=== PATIENT | male | born 1975 | race American Indian/Alaskan Native ===

== ENCOUNTER 2019-05-11 18:15 | Emergency (ER) | payer MEDICAID ==
[2019-05-11] MEDS ORDERED: Cefuroxime 250 MG Tab PO ONE (18:16)
[2019-05-11 18:20] VITALS: BP 113/79; PULSE 111
--- NOTE | 2019-05-11 18:50 | EDM.PDOC ---
ED HPI GENERAL MEDICAL PROBLEM - General Chief Complaint: Respiratory Problem Stated Complaint: malaise,cough Time Seen by Provider: 05/11/19 18:35 Source of Information: Reports: Patient History Limitations: Reports: No Limitations - History of Present Illness INITIAL COMMENTS - FREE TEXT/NARRATIVE: Has had body aches, cough and nasal drainage since Wednesday night. cough is harsh. Has had low grade temps with chills at times. Exposure to influenza from grandson. 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 [No Known Home Meds] 05/07/15 [History] Past Medical History - Past Health History Medical/Surgical History: Denies Medical/Surgical History Musculoskeletal History: Reports: Arthritis - Past Surgical History Musculoskeletal Surgical History: Reports: Arthroscopic Knee, Other (See Below) Other Musculoskeletal Surgeries/Procedures:: has history of scope surgery to left knee; gets injections in both knees Social & Family History - Tobacco Use Smoking Status *Q: Never Smoker ED ROS GENERAL - Review of Systems Review Of Systems: See Below Constitutional: Reports: Fever, Chills HEENT: Reports: Throat Pain Respiratory: Reports: Cough, Sputum (clear) Cardiovascular: Reports: No Symptoms GI/Abdominal: Reports: No Symptoms Skin: Reports: No Symptoms ED EXAM, GENERAL - Physical Exam Exam: See Below Exam Limited By: No Limitations General Appearance: Alert, WD/WN, Mild Distress Ears: Normal External Exam, Normal Canal, Normal TMs Nose: Normal Inspection Throat/Mouth: Normal Inspection, Normal Oropharynx, No Airway Compromise Head: Atraumatic Neck: Normal Inspection, Supple, Non-Tender Respiratory/Chest: No Respiratory Distress, Lungs Clear, Normal Breath Sounds Cardiovascular: Regular Rate, Rhythm GI/Abdominal: Normal Bowel Sounds, Soft, Non-Tender Neurological: Alert, Oriented Skin Exam: Warm, Dry, Intact Course - Vital Signs Last Recorded V/S: Last Vital Signs Temp 97.8 F 05/11/19 18:17 Pulse 111 H 05/11/19 18:17 Resp 16 05/11/19 18:17 BP 113/79 05/11/19 18:17 Pulse Ox 96 05/11/19 18:17 - Orders/Labs/Meds Orders: Active Orders 24 hr Category Date Time Status CBC WITH AUTO DIFF [HEME] Stat Lab 05/11/19 18:40 Results INFLUENZA A+B AG SCREEN [RM] Stat Lab 05/11/19 18:27 Ordered MANUAL DIFFERENTIAL QA/NC [HEME] Stat Lab 05/11/19 18:40 Results Labs: Laboratory Tests 05/11/19 Range/Units 18:40 WBC 15.3 H (5.0-10.0) 10^3/uL RBC 5.60 (4.50-6.00) 10^6/uL Hgb 17.0 (14.0-18.0) g/dL Hct 49.4 (40.0-54.0) % MCV 88.2 (82.0-94.0) fL MCH 30.4 (27.0-32.0) pg MCHC 34.4 (33.0-38.0) g/dL RDW Coeff of Andrew 14.1 (11.0-15.0) % Plt Count 260 (150-400) 10^3/uL Add Manual Diff Yes Departure - Departure Time of Disposition: 19:10 Disposition: Home, Self-Care 01 Condition: Good Clinical Impression: Sinusitis Qualifiers: Sinusitis location: maxillary Chronicity: acute Recurrence: non-recurrent Qualified Code(s): J01.00 - Acute maxillary sinusitis, unspecified - Discharge Information *PRESCRIPTION DRUG MONITORING PROGRAM REVIEWED*: Not Applicable *COPY OF PRESCRIPTION DRUG MONITORING REPORT IN PATIENT PRISCILA: Not Applicable Instructions: Sinusitis, Adult, [id number] Forms: ED Department Discharge Additional Instructions: push fluids as much as possible tylenol or advil as needed for discomfort or fever Rest recheck in clinic if any changes in symptoms Ceftin 500 mg twice a day for 10 days Sepsis Event Note - Evaluation Sepsis Screening Result: No Definite Risk - Focused Exam Vital Signs: Vital Signs Temp Pulse Resp BP Pulse Ox 05/11/19 18:17 97.8 F 111 H 16 113/79 96 Date Exam was Performed: 05/11/19 Time Exam was Performed: 19:09 - Problem List & Annotations (1) Sinusitis SNOMED Code(s): 55051633 Code(s): J32.9 - CHRONIC SINUSITIS, UNSPECIFIED Status: Acute Current Visit: Yes Qualifiers: Sinusitis location: maxillary Chronicity: acute Recurrence: non- recurrent Qualified Code(s): J01.00 - Acute maxillary sinusitis, unspecified - Problem List Review Problem List Initiated/Reviewed/Updated: Yes - My Orders Last 24 Hours: My Active Orders 05/11/19 18:27 INFLUENZA A+B AG SCREEN [RM] Stat 05/11/19 18:40 CBC WITH AUTO DIFF [HEME] Stat MANUAL DIFFERENTIAL QA/NC [HEME] Stat - Assessment/Plan Last 24 Hours: My Active Orders 05/11/19 18:27 INFLUENZA A+B AG SCREEN [RM] Stat 05/11/19 18:40 CBC WITH AUTO DIFF [HEME] Stat MANUAL DIFFERENTIAL QA/NC [HEME] Stat
[2019-05-11] MEDS: Take Home: Cefuroxime 250 MG Tab, 2 Tab Pack PO ONE (19:16)
== END 2019-05-11 19:20 | disposition home or self-care (01) ==
LOC: CC.ED 18:15
DX: J01.00 Acute maxillary sinusitis, unspecified (principal); Z88.0 Allergy status to penicillin; Z88.1 Allergy status to other antibiotic agents
CPT/HCPCS: 36415; 85025; 87804; 99283; A9270-GY

== ENCOUNTER 2020-11-25 18:57 | Inpatient (IN) | payer MEDICAID ==
[2020-11-25] MEDS ORDERED: Acetaminophen 325 MG Tab PO ONE ×2 (19:00→19:08)
--- NOTE | 2020-11-25 19:43 | EDM.PDOC ---
ED HPI GENERAL MEDICAL PROBLEM - General Chief Complaint: General Stated Complaint: COVID+ "Not Feeling Better" Time Seen by Provider: 11/25/20 19:20 Source of Information: Reports: Patient History Limitations: Reports: No Limitations - History of Present Illness INITIAL COMMENTS - FREE TEXT/NARRATIVE: Ulices is a 45 year old male who presents to ER with complaints of cough, body aches and fever now for over a week. Several members in the house have been ill and tested positive for covid. He admits that his shortness of breath has gotten worse over the last 3 days, could hardly even get out to his car to come here. Has been sleeping much of the weekend at home. Still has intermittent high fevers, 103 on arrival to the ER here tonight. Admits to sore throat initially. Has lost his taste and smell. Cough is dry and tight, nonproductive. Nauseated at times. Does have more discomfort with his umbilical hernia now due to the frequent cough. Intermittent diarrhea. Did not get the vaccine. has been taking ibuprofen and tylenol and it only seems to help for a short period of time. Nurse reports that oxygen sat was 87% on arrival. Onset: Gradual Duration: Day(s):, Getting Worse Location: Reports: Chest, Generalized Quality: Reports: Ache Severity: Moderate Improves with: Reports: Rest Worsens with: Reports: Movement Associated Symptoms: Reports: Cough, Fever/Chills, Headaches, Loss of Appetite, Malaise, Nausea/Vomiting, Shortness of Breath, Weakness. 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 [No Known Home Meds] 05/07/15 [History] Past Medical History - Past Health History Medical/Surgical History: Denies Medical/Surgical History Musculoskeletal History: Reports: Arthritis - Past Surgical History Musculoskeletal Surgical History: Reports: Arthroscopic Knee, Other (See Below) Other Musculoskeletal Surgeries/Procedures:: has history of scope surgery to left knee; gets injections in both knees Social & Family History - Family History Family Medical History: No Pertinent Family History - Tobacco Use Tobacco Use Status *Q: Never Tobacco User Second Hand Smoke Exposure: No - Caffeine Use Caffeine Use: Reports: None - Recreational Drug Use Recreational Drug Use: No ED ROS GENERAL - Review of Systems Review Of Systems: See Below Constitutional: Reports: Fever, Chills, Malaise, Weakness, Fatigue HEENT: Reports: Rhinitis. Denies: Ear Pain, Sinus Problem, Throat Pain, Vertigo Respiratory: Reports: Shortness of Breath, Cough. Denies: Sputum Cardiovascular: Denies: Chest Pain, Edema, Lightheadedness Endocrine: Reports: Fatigue GI/Abdominal: Reports: Diarrhea, Nausea. Denies: Abdominal Pain, Constipation, Vomiting : Reports: No Symptoms Musculoskeletal: Reports: Muscle Pain, Muscle Stiffness Skin: Reports: No Symptoms Neurological: Reports: Headache, Weakness ED EXAM, GENERAL - Physical Exam Exam: See Below Exam Limited By: No Limitations General Appearance: Alert, WD/WN, Mild Distress Ears: Normal External Exam, Normal TMs Nose: Normal Inspection, Normal Mucosa, Clear Rhinorrhea Throat/Mouth: Normal Inspection, Normal Oropharynx Head: Normocephalic Neck: Normal Inspection, Supple, Non-Tender Respiratory/Chest: Decreased Breath Sounds Cardiovascular: Normal Peripheral Pulses, Regular Rate, Rhythm, No Edema GI/Abdominal: Normal Bowel Sounds, Soft, Tender (left upper and lower quadrant, umbilical area), Hernia Extremities: Normal Inspection, No Pedal Edema Neurological: Alert, Oriented Skin Exam: Warm, Dry Course - Vital Signs Last Recorded V/S: Last Vital Signs Temp 103.4 F H 11/25/20 18:57 Pulse 84 11/25/20 18:57 Resp 24 H 11/25/20 18:57 BP 154/85 H 11/25/20 18:57 Pulse Ox 91 L 11/25/20 18:57 - Orders/Labs/Meds Orders: Active Orders 24 hr Category Date Time Status Patient Status Manage Transfer [TRANSFER] Routine ADT 11/25/20 19:55 Active Chest 1V Frontal [CR] Stat Exams 11/25/20 19:00 Taken CULTURE BLOOD [BC] Stat Lab 11/25/20 19:20 Received CULTURE BLOOD [BC] Stat Lab 11/25/20 19:25 Received Blood Culture x2 Reflex Set [OM.PC] Stat Oth 11/25/20 19:05 Ordered Resuscitation Status Routine Resus Stat 11/25/20 19:57 Ordered Labs: Laboratory Tests 09/09/0911/25/20 11/25/20 Range/Units 19:07 19:20 19:20 WBC 8.2 (4.0-11.0) 10^3/uL RBC 5.13 (4.50-6.00) x10^6/uL Hgb 15.8 (14.0-18.0) g/dL Hct 45.0 (42.0-52.0) % MCV 87.7 (83.0-97.0) fL MCH 30.8 (27.0-32.0) pg MCHC 35.1 (32.0-36.0) g/dL RDW Coeff of Andrew 13.2 (11.0-15.0) % Plt Count 220 (150-400) 10^3/uL Immature Gran % (Auto) 1.5 (0.0-4.9) % Neut % (Auto) 71.9 H (41-71) % Lymph % (Auto) 16.1 L (24-44) % [place] % (Auto) 9.7 (0-10) % Eos % (Auto) 0.4 (0-6) % Baso % (Auto) 0.4 (0-1) % Neut # (Auto) 5.88 (1.80-8.00) x10^3/uL Lymph # (Auto) 1.31 (0.60-5.00) 10^3/uL [place] # (Auto) 0.79 (0.00-1.50) 10^3/uL Eos # (Auto) 0.03 (0.00-1.50) 10^3/uL Baso # (Auto) 0.03 (0.00-0.50) 10^3/uL Immature Gran # (Auto) 0.12 (0.00-0.49) 10^3/uL D-Dimer, Quantitative (0.00-0.50) Sodium 140 (136-145) mEq/L Potassium 3.6 (3.5-5.0) mEq/L Chloride 102 (98-106) mEq/L Carbon Dioxide 26 (21-32) mmol/L BUN 14 (7-18) mg/dL Creatinine 0.9 (0.7-1.3) mg/dL Est Cr Clr Drug Dosing 94.87 mL/min Estimated GFR (MDRD) > 60 (>=60) mL/min Glucose 98 (75-99) mg/dL Lactic Acid (0.4-2.0) mmol/L Calcium 8.2 L (8.4-10.1) mg/dL Magnesium 1.9 (1.8-2.4) mg/dL Total Bilirubin 0.6 (0.0-1.0) mg/dL AST 34 (15-37) U/L ALT 41 (12-78) U/L Alkaline Phosphatase 83 (46-116) U/L Troponin I High Sens 5.3 (<=76) pg/mL C-Reactive Protein 8.6 H (0.2-0.8) mg/dL NT-Pro-B Natriuret Pep 137 (0-1000) pg/mL Total Protein 7.4 (6.4-8.2) g/dL Albumin 3.0 L (3.4-5.0) g/dL SARS CoV-2 RNA Rapid SHAMA Positive H (NEGATIVE) 11/25/20 11/25/20 Range/Units 19:25 19:25 WBC (4.0-11.0) 10^3/uL RBC (4.50-6.00) x10^6/uL Hgb (14.0-18.0) g/dL Hct (42.0-52.0) % MCV (83.0-97.0) fL MCH (27.0-32.0) pg MCHC (32.0-36.0) g/dL RDW Coeff of Andrew (11.0-15.0) % Plt Count (150-400) 10^3/uL Immature Gran % (Auto) (0.0-4.9) % Neut % (Auto) (41-71) % Lymph % (Auto) (24-44) % [place] % (Auto) (0-10) % Eos % (Auto) (0-6) % Baso % (Auto) (0-1) % Neut # (Auto) (1.80-8.00) x10^3/uL Lymph # (Auto) (0.60-5.00) 10^3/uL [place] # (Auto) (0.00-1.50) 10^3/uL Eos # (Auto) (0.00-1.50) 10^3/uL Baso # (Auto) (0.00-0.50) 10^3/uL Immature Gran # (Auto) (0.00-0.49) 10^3/uL D-Dimer, Quantitative 0.87 H (0.00-0.50) Sodium (136-145) mEq/L Potassium (3.5-5.0) mEq/L Chloride (98-106) mEq/L Carbon Dioxide (21-32) mmol/L BUN (7-18) mg/dL Creatinine (0.7-1.3) mg/dL Est Cr Clr Drug Dosing mL/min Estimated GFR (MDRD) (>=60) mL/min Glucose (75-99) mg/dL Lactic Acid 0.8 (0.4-2.0) mmol/L Calcium (8.4-10.1) mg/dL Magnesium (1.8-2.4) mg/dL Total Bilirubin (0.0-1.0) mg/dL AST (15-37) U/L ALT (12-78) U/L Alkaline Phosphatase (46-116) U/L Troponin I High Sens (<=76) pg/mL C-Reactive Protein (0.2-0.8) mg/dL NT-Pro-B Natriuret Pep (0-1000) pg/mL Total Protein (6.4-8.2) g/dL Albumin (3.4-5.0) g/dL SARS CoV-2 RNA Rapid SHAMA (NEGATIVE) Meds: Medications Discontinued Medications Generic Name Dose Route Start Last Admin Trade Name Vernon PRN Reason Stop Dose Admin Acetaminophen 1,000 mg 11/25/20 19:00 11/25/20 19:08 Acetaminophen 325 Mg Tab PO 11/25/20 19:01 Not Given NOW ONE Acetaminophen 650 mg 11/25/20 19:08 11/25/20 19:10 Acetaminophen 325 Mg Tab PO 11/25/20 19:09 650 mg NOW ONE Administration - Re-Assessments/Exams Free Text/Narrative Re-Assessment/Exam: 11/25/20 19:48 Covid positive. Oxygen sat 95% on 2 liters of oxygen 11/25/20 20:21 Labs all essentially unremarkable. CRP 8.6, d-dimer mildly elevated at 0.89. Admit to inpatient. Start on IV fluids tonight until oral intake improved. Will start IV Remdesivir. Oxygen. Departure - Departure Time of Disposition: 20:24 Disposition: Admitted As Inpatient 64 Condition: Fair Clinical Impression: COVID-19, Hypoxia - Discharge Information *PRESCRIPTION DRUG MONITORING PROGRAM REVIEWED*: No *COPY OF PRESCRIPTION DRUG MONITORING REPORT IN PATIENT PRISCILA: No Sepsis Event Note (ED) - Evaluation Sepsis Screening Result: No Definite Risk - Focused Exam Vital Signs: Vital Signs Temp Pulse Resp BP Pulse Ox 11/25/20 18:57 103.4 F H 84 24 H 154/85 H 91 L - Problem List & Annotations (1) COVID-19 SNOMED Code(s): 341475059 Code(s): U07.1 - COVID-19 Status: Acute Priority: High Current Visit: Yes (2) Hypoxia SNOMED Code(s): 089657585 Code(s): R09.02 - HYPOXEMIA Status: Acute Priority: High Current Visit: Yes - Problem List Review Problem List Initiated/Reviewed/Updated: Yes - My Orders Last 24 Hours: My Active Orders 11/25/20 19:00 Chest 1V Frontal [CR] Stat 11/25/20 19:05 Blood Culture x2 Reflex Set [OM.PC] Stat 11/25/20 19:20 CULTURE BLOOD [BC] Stat 11/25/20 19:25 CULTURE BLOOD [BC] Stat 11/25/20 19:55 Patient Status Manage Transfer [TRANSFER] Routine 11/25/20 19:57 Resuscitation Status Routine - Assessment/Plan Admission H&P: Please use this note as an admission H&P Last 24 Hours: My Active Orders 11/25/20 19:00 Chest 1V Frontal [CR] Stat 11/25/20 19:05 Blood Culture x2 Reflex Set [OM.PC] Stat 11/25/20 19:20 CULTURE BLOOD [BC] Stat 11/25/20 19:25 CULTURE BLOOD [BC] Stat 11/25/20 19:55 Patient Status Manage Transfer [TRANSFER] Routine 11/25/20 19:57 Resuscitation Status Routine Assessment:: covid 19 Hypoxia Plan: Admit inpatient. Start IV fluids tonight. Remdesivir. Oxygen to keep sats greater than 90%.
[2020-11-25 19:49] LABS: CHLORIDE,CL 102 mEq/L (98-106); SODIUM,NA 140 mEq/L (136-145)
[2020-11-25] MEDS ORDERED: Polyethylene Glycol 3350 Powder 17 GM Packet PO PRN (20:49)
[2020-11-25] MEDS ORDERED: Ibuprofen 200 MG Tab PO PRN (20:49)
[2020-11-25] MEDS ORDERED: Temazepam 15 MG Cap PO PRN (20:49)
[2020-11-25] MEDS ORDERED: Ondansetron 4 MG/2 ML SDV IV PRN (20:49)
[2020-11-25] MEDS ORDERED: Ondansetron 4 MG Tab.DIS PO PRN (20:49)
[2020-11-25] MEDS ORDERED: Sodium Chloride 0.9% 10 ML Syringe FLUSH PRN (20:49)
[2020-11-25] MEDS ORDERED: REMDESIVIR 200 MG in Sodium Chloride 0.9% 250 ML IV ONE (20:49)
[2020-11-25] MEDS ORDERED: Sodium Chloride 0.9% 1,000 ML IV SCH (20:49)
[2020-11-26] MEDS: Acetaminophen 325 MG Tab PO PRN (03:23)
[2020-11-26 07:34] LABS: CHLORIDE,CL 103 mEq/L (98-106); SODIUM,NA 139 mEq/L (136-145)
--- NOTE | 2020-11-26 11:37 | PN ---
DATE: 11/26/2020 S: The patient is a 45-year-old male, known to me whose family apparently has all had COVID. He started getting more short of breath and was found to be hypoxic. Ivett Chowdhury admitted him from the ER and did give him remdesivir. He has been essentially afebrile since admission with a temperature at the time of admission of 103.4. He has been afebrile since, started out requiring 2 L of oxygen to keep him in the mid 90s where he is down to 1 L and he is saturating in the upper 90s at this time. He does feel better and less short of breath. His lab work is reviewed from his admission and is essentially stable. D-dimer was only 0.87. O: GENERAL: The patient is pleasant and cooperative. He appears in no distress. HEENT: Grossly benign. NECK: Neck veins are flat. LUNGS: Lung sounds are a little rhonchus in the upper airways, but otherwise clear. CARDIAC: Tones are regular. ABDOMEN: Soft. EXTREMITIES: He has no peripheral edema. ASSESSMENT: CORONAVIRUS DISEASE 2019 WITH HYPOXIA. P: We will continue to wean his O2. No other changes at this time. CLARI/MARCELINO /[id number]
[2020-11-26] MEDS: Enoxaparin 40 MG/0.4 ML Syringe SUBCUT SCH (12:15)
[2020-11-26] MEDS ORDERED: Rocuronium 50 MG/5 ML Vial ONE ×2 (13:54→13:56)
[2020-11-26] MEDS ORDERED: Succinylcholine 200 MG/10 ML MDV ONE ×2 (13:54→13:56)
[2020-11-26] MEDS: REMDESIVIR 100 MG in Sodium Chloride 0.9% 100 ML IV SCH (20:15)
[2020-11-27] MEDS: Acetaminophen 325 MG Tab PO PRN ×2 (00:55→08:16)
[2020-11-27 07:31] LABS: CHLORIDE,CL 103 mEq/L (98-106); SODIUM,NA 140 mEq/L (136-145)
[2020-11-27] MEDS: Enoxaparin 40 MG/0.4 ML Syringe SUBCUT SCH (12:27)
[2020-11-27] MEDS: REMDESIVIR 100 MG in Sodium Chloride 0.9% 100 ML IV SCH (12:28)
[2020-11-27 12:52] VITALS: BP 136/69; PULSE 69
--- NOTE | 2020-11-27 18:29 | PCM.DCSUM1 ---
Discharge Summary - Hospital Course Free Text/Narrative:: Ulices is a 45 year old male who presented to ER with complaints of cough, body aches and fever for over a week. Shortness of breath had worsened, positive for covid in ER. Had been sleeping much of the weekend at home. Still has intermittent high fevers, 103 on arrival. Admits to sore throat initially. Has lost his taste and smell. Cough is dry and tight, nonproductive. Nauseated at times. Does have more discomfort with his umbilical hernia now due to the frequent cough. Intermittent diarrhea. Did not get the vaccine. has been taking ibuprofen and tylenol and it only seems to help for a short period of time. Nurse reports that oxygen sat was 87% on arrival to ER. Did improve to greater than 90% on 2 liters. Labs were essentially unremarkable. Chest xray shows infiltrated concerning with covid. Admitted with oxygen, started on Rem desivir IV. Diagnosis: Stroke: No Modified [place] Scale: No Symptoms at All Modified [place] Scale Score: 0 - Discharge Data Discharge Date: 11/27/20 Discharge Disposition: Home, Self-Care 01 Condition: Good - Referral to Home Health Primary Care Physician: Robert Montesinos MD - Discharge Diagnosis/Problem(s) (1) COVID-19 SNOMED Code(s): 934972390 ICD Code: U07.1 - COVID-19 Status: Acute Priority: High (2) Hypoxia SNOMED Code(s): 990398972 ICD Code: R09.02 - HYPOXEMIA Status: Acute Priority: High - Patient Summary/Data Complications: none Hospital Course: Patient states feeling 100% better than on arrival here on Wednesday. Oxygen sats now greater than 90% off oxygen. Temp is low grade, much improved. Is active in room, ambulating in the hallways. Tolerating well. Appetite is good. Lung sounds are clear. Did receive 3 doses of Remdesivir. Does feel ready to be discharged home. Will follow up with Dr. Montesinos in 10 days. - Patient Instructions Diet: Usual Diet as Tolerated Activity: As Tolerated - Discharge Plan *PRESCRIPTION DRUG MONITORING PROGRAM REVIEWED*: No *COPY OF PRESCRIPTION DRUG MONITORING REPORT IN PATIENT PRISCILA: No Home Medications: Home Meds . [No Known Home Meds] 05/07/15 [History] Patient Handouts: COVID-19 Forms: ED Department Discharge Referrals: Robert Montesinos MD [Primary Care Provider] - (Follow up with Dr. Montesinos in 10 days) - Discharge Summary/Plan Comment DC Time >30 min.: No Total # of Minutes for Discharge Time: 20 - General Info Date of Service: 11/27/20 Admission Dx/Problem (Free Text: COVID 19 Functional Status: Reports: Pain Controlled, Ambulating - Review of Systems General: Reports: Weakness, Fatigue, Malaise HEENT: Reports: No Symptoms Pulmonary: Reports: Shortness of Breath. Denies: Cough Cardiovascular: Denies: Chest Pain, Edema, Lightheadedness Gastrointestinal: Denies: Abdominal Pain, Nausea, Vomiting Genitourinary: Reports: No Symptoms Musculoskeletal: Reports: No Symptoms Skin: Reports: No Symptoms Neurological: Reports: Weakness - Patient Data Vitals - Most Recent: Last Vital Signs Temp 97.6 F 11/27/20 12:00 Pulse 69 11/27/20 12:00 Resp 20 11/27/20 12:00 BP 136/69 11/27/20 12:00 Pulse Ox 95 11/27/20 12:00 Weight - Most Recent: 226 lb Lab Results - Last 24 hrs: Laboratory Results - last 24 hr 11/27/20 11/27/20 Range/Units 07:00 07:00 WBC 8.0 (4.0-11.0) 10^3/uL RBC 4.80 (4.50-6.00) x10^6/uL Hgb 14.8 (14.0-18.0) g/dL Hct 42.2 (42.0-52.0) % MCV 87.9 (83.0-97.0) fL MCH 30.8 (27.0-32.0) pg MCHC 35.1 (32.0-36.0) g/dL RDW Coeff of Andrew 13.0 (11.0-15.0) % Plt Count 266 (150-400) 10^3/uL Immature Gran % (Auto) 2.4 (0.0-4.9) % Neut % (Auto) 59.8 (41-71) % Lymph % (Auto) 20.3 L (24-44) % [place] % (Auto) 15.2 H (0-10) % Eos % (Auto) 2.1 (0-6) % Baso % (Auto) 0.2 (0-1) % Neut # (Auto) 4.81 (1.80-8.00) x10^3/uL Lymph # (Auto) 1.63 (0.60-5.00) 10^3/uL [place] # (Auto) 1.22 (0.00-1.50) 10^3/uL Eos # (Auto) 0.17 (0.00-1.50) 10^3/uL Baso # (Auto) 0.02 (0.00-0.50) 10^3/uL Immature Gran # (Auto) 0.19 (0.00-0.49) 10^3/uL Sodium 140 (136-145) mEq/L Potassium 3.5 (3.5-5.0) mEq/L Chloride 103 (98-106) mEq/L Carbon Dioxide 29 (21-32) mmol/L BUN 13 (7-18) mg/dL Creatinine 1.0 (0.7-1.3) mg/dL Est Cr Clr Drug Dosing 85.38 mL/min Estimated GFR (MDRD) > 60 (>=60) mL/min Glucose 101 H D (75-99) mg/dL Calcium 8.0 L (8.4-10.1) mg/dL Total Bilirubin 0.5 (0.0-1.0) mg/dL Direct Bilirubin 0.2 (0.0-0.3) mg/dL AST 20 (15-37) U/L ALT 31 (12-78) U/L Alkaline Phosphatase 73 (46-116) U/L C-Reactive Protein 8.6 H (0.2-0.8) mg/dL Total Protein 6.9 (6.4-8.2) g/dL Albumin 2.7 L (3.4-5.0) g/dL ILEANA Results - Last 24 hrs: Microbiology 11/25/20 19:25 Aerobic Blood Culture - Preliminary Blood - Venous - Lab Draw NO GROWTH AFTER 1 DAY Anaerobic Blood Culture - Preliminary NO GROWTH AFTER 1 DAY 11/25/20 19:20 Aerobic Blood Culture - Preliminary Blood - Venous NO GROWTH AFTER 1 DAY Anaerobic Blood Culture - Preliminary NO GROWTH AFTER 1 DAY Med Orders - Current: Current Medications Discontinued Medications Acetaminophen (Acetaminophen 325 Mg Tab) 1,000 mg PO NOW ONE Stop: 11/25/20 19:01 Last Admin: 11/25/20 19:08 Dose: Not Given Documented by: Acetaminophen (Acetaminophen 325 Mg Tab) 650 mg PO NOW ONE Stop: 11/25/20 19:09 Last Admin: 11/25/20 19:10 Dose: 650 mg Documented by: Acetaminophen (Acetaminophen 325 Mg Tab) 650 mg PO Q4H PRN PRN Reason: Pain (Mild 1-3)/fever Last Admin: 11/27/20 08:16 Dose: 650 mg Documented by: Enoxaparin Sodium (Enoxaparin 40 Mg/0.4 Ml Syringe) 40 mg SUBCUT Q24H [facility] [place] Last Admin: 11/27/20 12:27 Dose: 40 mg Documented by: Sodium Chloride (Normal Saline) 1,000 mls @ 75 mls/hr IV ASDIRECTED [facility] [place] Last Admin: 11/26/20 03:23 Dose: 75 mls/hr Documented by: Remdesivir 200 mg/ Sodium (Chloride) 250 mls @ 250 mls/hr IV ONETIME ONE Stop: 11/25/20 20:50 Last Admin: 11/25/20 21:32 Dose: 250 mls/hr Documented by: Remdesivir 100 mg/ Sodium (Chloride) 100 mls @ 100 mls/hr IV Q24H [facility] [place] Stop: 11/29/20 20:59 Last Admin: 11/27/20 12:28 Dose: 100 mls/hr Documented by: Ibuprofen (Ibuprofen 200 Mg Tab) 400 mg PO Q6H PRN PRN Reason: Pain (mild 1-3) Ondansetron HCl (Ondansetron 4 Mg Tab.Dis) 4 mg PO Q4H PRN PRN Reason: nausea, able to take PO Ondansetron HCl (Ondansetron 4 Mg/2 Ml Sdv) 4 mg IV Q4H PRN PRN Reason: Nausea/Vomiting Polyethylene Glycol (Polyethylene Glycol 3350 Powder 17 Gm Packet) 17 gm PO DAILY PRN PRN Reason: Constipation Rocuronium Magnolia (Rocuronium 50 Mg/5 Ml Vial) Confirm Administered Dose 50 mg .ROUTE .STK-MED ONE Stop: 11/26/20 13:55 Last Admin: 11/26/20 15:27 Dose: Not Given Documented by: Rocuronium Magnolia (Rocuronium 50 Mg/5 Ml Vial) Confirm Administered Dose 50 mg .ROUTE .STK-MED ONE Stop: 11/26/20 13:57 Last Admin: 11/26/20 15:27 Dose: Not Given Documented by: Sodium Chloride (Sodium Chloride 0.9% 10 Ml Syringe) 10 ml FLUSH ASDIRECTED PRN PRN Reason: Keep Vein Open Succinylcholine Chloride (Succinylcholine 200 Mg/10 Ml Mdv) Confirm Administered Dose 200 mg .ROUTE .STTargeGen-MED ONE Stop: 11/26/20 13:55 Last Admin: 11/26/20 15:27 Dose: Not Given Documented by: Succinylcholine Chloride (Succinylcholine 200 Mg/10 Ml Mdv) Confirm Administered Dose 200 mg .ROUTE .Edvivo-Marginize ONE Stop: 11/26/20 13:57 Last Admin: 11/26/20 15:27 Dose: Not Given Documented by: Temazepam (Temazepam 15 Mg Cap) 15 mg PO BEDTIME PRN PRN Reason: Sleep - Exam General: Reports: Alert, Oriented HEENT: Reports: Mucous Membr. Moist/[place] Neck: Reports: Supple Lungs: Reports: Clear to Auscultation, Normal Respiratory Effort Cardiovascular: Reports: Regular Rate, Regular Rhythm GI/Abdominal Exam: Normal Bowel Sounds, Soft, Non-Tender Extremities: Normal Inspection, No Pedal Edema Skin: Reports: Warm, Dry Neurological: Reports: No New Focal Deficit
== END 2020-11-27 14:35 | disposition home or self-care (01) | DRG 179 ==
LOC: CC.ED 18:57 → CC.MS 19:55 → UNDOADMIN 20:00 → CC.MS 20:00
PROVIDERS: ADMIT Physician Assistant Medical; ATTEND Family Medicine
PROC: XW033E5 Introduction of Remdesivir Anti-infective into Peripheral Vein, Percutaneous Approach, New Technology Group 5 (ICD-10-PCS; principal; 2020-11-25)
DX: U07.1 COVID-19 (principal); K42.9 Umbilical hernia without obstruction or gangrene; M19.90 Unspecified osteoarthritis, unspecified site; Z88.1 Allergy status to other antibiotic agents; Z88.0 Allergy status to penicillin
CPT/HCPCS: 36415; 71045; 80053; 82248; 83605; 83735; 83880; 84484; 85025; 85379; 86140; 87040; 93005; 99285-25; A9270-GY; J0330; J1650; J7030; J7050; U0002